=== PATIENT | female | born 1980 | race Caucasian/White ===

== ENCOUNTER 2018-08-20 18:25 | Emergency (ER) | payer OTHER ==
[~2018-08-20] VITALS: Ht 172.7 cm; Wt 72.6 kg
[2018-08-20] MEDS ORDERED: NEURONTIN600 MG PO (18:36)
[2018-08-20] MEDS ORDERED: OXYBUTYNIN 5 MG5 M2 PO (18:36)
[2018-08-20] MEDS ORDERED: IMOVAX RABIE2.5 UNIT IM (20:18)
[2018-08-20] MEDS ORDERED: AUGMENTIN 875-1 EACH PO (20:20)
[2018-08-20] MEDS ORDERED: ACETAMINOPHEN-1 EAC1 PO (20:22)
[2018-08-20 20:54] VITALS: BP 118/69
== END 2018-08-20 20:54 | disposition home or self-care (01) ==
LOC: M.ERS 18:25
DX: S91.051A Open bite, right ankle, initial encounter (principal); Z90.710 Acquired absence of both cervix and uterus; W54.0XXA Bitten by dog, initial encounter; Y93.89 Activity, other specified; Y92.89 Other specified places as the place of occurrence of the external cause; Y99.8 Other external cause status

== ENCOUNTER → 2019-03-01 | Outpatient (CLI) | payer OTHER ==
[~2019-03-01] MED LIST: ACETAMINOPHEN-1 EAC1 PO; AUGMENTIN 875-1 EACH PO; IMOVAX RABIE2.5 UNIT IM; NEURONTIN600 MG PO; OXYBUTYNIN 5 MG5 M2 PO
== END ==
LOC: M.RAD 13:00
DX: Z12.31 Encounter for screening mammogram for malignant neoplasm of breast (principal)